=== PATIENT | male | born 1990 | race Caucasian/White ===

== ENCOUNTER 2019-05-31 16:54 | Emergency (ER) | payer OTHER ==
--- OUTSIDE RECORDS SUMMARY | 2019-05-31 16:56 | XMS REPORT ---
:1990 Author Organization [facility] t Address [address] [place] [address] Care Team Providers Name Role Phone Unavailable Unavailable Unavailable Payers Payer Name Policy Type Policy Number Effective Date Expiration D ate Problems This patient has no known problems. Allergies, Adverse Reactions, Alerts Allergy Allergy Status Severity Reaction(s) Onset Inactive Treating Marcella matos Name Type Date Date Clinician No Known DA Active U 2017-11 Allergies 00:00:0 0 Medications This patient has no known medications. Encounters Start End Encounter Admission Attending Care Care Encounter Date/Time Date/Time Type Type Clinicians Facility Department ID 2017-12-07 2017-12-07 Emergency E [facility] [id number] 08:47:00 08:47:00
[2019-05-31 18:03] LABS: Protime INR 1.03
--- NOTE | 2019-05-31 18:05 | RAD REPORT ---
EXAM DESCRIPTION: Cale Single View05/31/2019 5:47 pm CLINICAL HISTORY: Syncope COMPARISON: none FINDINGS: The lungs appear clear of acute infiltrate. The heart is normal size IMPRESSION: No acute abnormalities displayed
[2019-05-31 18:17] LABS: ALT/SGPT 30 U/L (12-78); AST/SGOT 12 U/L (15-37); Albumin 4.1 g/dL (3.4-5.0); Alkaline Phosphatase 94 U/L (45-117); BUN Blood Urea Nitrogen 16 mg/dL (7-18); Bicarbonate 27 mmol/L (21-32); Bilirubin Direct < 0.1 mg/dL (0-0.2); Bilirubin Total 0.3 mg/dL (0.2-1.0); Glucose Level 95 mg/dL (74-106); Magnesium 2.1 mg/dL (1.8-2.4); NT PRO-BNP 20 pg/mL (<125); Potassium 4.1 mmol/L (3.5-5.1); Protein, Total 7.7 g/dL (6.4-8.2); Sodium Level 140 mmol/L (136-145); Troponin (Emerg Dept Use Only) < 0.02 ng/mL (0.0-0.045)
[2019-05-31 18:18] LABS: Absolute Lymphocytes (CBC) 1.9 K/uL (0.7-4.9); Basophils % 0.5 % (0-1.3); Hematocrit 45.2 % (39.6-49.0); Lymphocytes % 27.7 % (15.3-44.8); MPV 9.5 fL (7.6-11.3); RBC Red Blood Cell Count 5.08 M/uL (4.33-5.43)
--- NOTE | 2019-05-31 18:51 | ER ---
Nurse's Notes [facility] Name: Tom Thomas Age: 28 yrs Sex: Male : 1990 Arrival Date: 05/31/2019 Time: 16:56 Bed 5 Private MD: Diagnosis: Dizziness and giddiness Presentation: 05/30 16:58 Method Of Arrival: Ambulatory sv 16:58 Chief complaint: Patient states: "I have heart problems and earlier I felt like I was sv going to pass out." Pt reports he was just eating something and "felt like someone turned my lights on and off. I've felt dizzy ever since.". Coronavirus screen: Proceed with normal triage. Patient denies a cough. Patient reports shortness of breath or difficulty breathing. Patient denies measured and/or subjective temperature greater than 100.4F prior to today's visit. Patient denies travel on a cruise ship or to a country the [facility] currently lists as an affected area. Patient denies contact with known and/or suspected case of COVID-19. Ebola Screen: No symptoms or risks identified at this time. Onset of symptoms was May 31, 2019. 16:58 Acuity: KILEY 3 sv 16:58 Initial Sepsis Screen: Does the patient meet any 2 criteria? No. Patient's initial sv sepsis screen is negative. Does the patient have a suspected source of infection? No. Patient's initial sepsis screen is negative. Risk Assessment: Do you want to hurt yourself or someone else? Patient reports no desire to harm self or others. Triage Assessment: 17:02 General: Appears in no apparent distress. comfortable, Behavior is calm, cooperative, sv appropriate for age. Pain: Denies pain. Neuro: Level of Consciousness is awake, alert, obeys commands, Oriented to person, place, time, situation, Gait is steady. Respiratory: Respiratory effort is even, unlabored. Historical: - Allergies: 17:00 No Known Allergies; sv - PMHx: 17:00 LVH; sv - PSHx: 17:00 None; sv - Immunization history:: Flu vaccine is not up to date. - Social history:: Smoking status: Patient denies any tobacco usage or history of. Screenin:03 Abuse screen: Denies threats or abuse. Denies injuries from another. Nutritional ls4 screening: No deficits noted. Tuberculosis screening: No symptoms or risk factors identified. Fall Risk None identified. Assessment: 17:00 Reassessment: SEE TRIAGE NOTE. bp 17:53 Reassessment: ALL CURRENT ORDERS IN PROCESS. PT ASYMPTOMATIC AT THIS TIME. bp Vital Signs: 16:58 BP 125 / 83; Pulse 64; Resp 16; Temp 97.8; Pulse Ox 100% on R/A; Weight 101.6 kg; sv Height 5 ft. 7 in. (170.18 cm); 17:18 BP 132 / 89 Supine; Pulse 64; Resp 14; Pulse Ox 100% on R/A; Pain 0/10; ls4 17:21 BP 130 / 92 Sitting; Pulse 63; Resp 14; Pulse Ox 99% on R/A; Pain 0/10; ls4 17:22 BP 125 / 92; Pulse 66; Resp 14; Pulse Ox 99% on R/A; Pain 0/10; ls4 17:52 BP 120 / 78; Pulse 71; Resp 16; Pulse Ox 99% ; bp 16:58 Body Mass Index 35.08 (101.60 kg, 170.18 cm) sv ED Course: 16:56 Patient arrived in ED. as 16:58 Arm band placed on. sv 17:00 Triage completed. sv 17:01 Irma Grover, ANGELIQUE is Primary Nurse. ls4 17:02 Rigo Leon PA is PHCP. cp 17:02 Ezra Diaz MD is Attending Physician. cp 17:03 Patient has correct armband on for positive identification. Bed in low position. Call ls4 light in reach. Side rails up X 1. 17:48 XRAY Chest (1 view) In Process Unspecified. EDMS 17:52 Inserted saline lock: 20 gauge in right antecubital area, using aseptic technique. bp Blood collected. 17:52 Initial lab(s) drawn, by al, sent to lab. ls4 17:52 Patient maintains SpO2 saturation greater than 95% on room air. ls4 18:54 IV discontinued, intact, bleeding controlled, No redness/swelling at site. Pressure ls4 dressing applied. 18:54 No provider procedures requiring assistance completed. ls4 Administered Medications: No medications were administered Outcome: 18:50 Discharge ordered by . cp 18:54 Discharged to home ambulatory. ls4 18:54 Condition: good 18:54 Discharge instructions given to patient, Instructed on discharge instructions, follow up and referral plans. medication usage, Demonstrated understanding of instructions, follow-up care, medications. 19:08 Patient left the ED. ls4 Signatures: Dispatcher [employer] EDMarisa Samayoa, RN RN Lucila Esparza Corey, PA PA cp Peltier, Brian, RN RN bp Stewart, Lisa, RN RN ls4 Corrections: (The following items were deleted from the chart) 17:02 16:58 101.6 kg; Height 5 ft. 7 in.; BMI: 35.0; sv sv 17:03 16:58 Pulse 64bpm; Resp 16bpm; Pulse Ox 100% RA; Temp 97.8F; 101.6 kg; Height 5 ft. 7 sv in.; BMI: 35.0; sv 19:11 18:54 No provider procedures requiring assistance completed. ls4 ls4 19:11 18:54 Patient did not have IV access during this emergency room visit. IV discontinued, ls4 intact, bleeding controlled, No redness/swelling at site. Pressure dressing applied, ls4
--- NOTE | 2019-05-31 18:51 | EDPHYS ---
Physician Documentation [facility] Name: Tom Thomas Age: 28 yrs Sex: Male : 1990 Arrival Date: 05/31/2019 Time: 16:56 Bed 5 Private MD: ED Physician Ezra Diaz HPI: 05/30 17:31 This 28 yrs old Male presents to ER via Ambulatory with complaints of Near cp Syncope. 17:31 The patient has experienced near-syncope, almost passed out, felt dizzy. Onset: The cp symptoms/episode began/occurred 40 minute(s) ago. Duration: This was a single episode. Context: occurred while the patient was eating, sitting, Just prior to the episode the patient experienced no apparent symptoms. Associated injury: The patient did not suffer any apparent associated injury. Associated signs and symptoms: Pertinent positives: chest pain, Pertinent negatives: abdominal pain, headache, palpitations, weakness. Current symptoms: dizziness. 17:31 Patient denies family history of early cardiac . cp Historical: - Allergies: 17:00 No Known Allergies; sv - PMHx: 17:00 LVH; sv - PSHx: 17:00 None; sv - Immunization history:: Flu vaccine is not up to date. - Social history:: Smoking status: Patient denies any tobacco usage or history of. ROS: 17:35 Constitutional: Negative for body aches, chills, fever, poor PO intake. cp 17:35 Eyes: Negative for injury, pain, redness, and discharge. cp 17:35 ENT: Negative for drainage from ear(s), ear pain, sore throat, difficulty swallowing, cp difficulty handling secretions. 17:35 Cardiovascular: Negative for edema, palpitations. 17:35 Respiratory: Negative for cough, shortness of breath, wheezing. 17:35 Abdomen/GI: Negative for abdominal pain, nausea, vomiting, and diarrhea, black/tarry stool, rectal bleeding. 17:35 Neuro: Positive for dizziness, near syncope, Negative for altered mental status, headache, syncope, weakness. 17:35 All other systems are negative. Exam: 17:30 ECG was reviewed by the Attending Physician. cp 17:40 Constitutional: The patient appears in no acute distress, alert, awake, cp non-diaphoretic, non-toxic, well developed, well nourished. 17:40 Head/Face: Normocephalic, atraumatic. cp 17:40 Eyes: Pupils equal round and reactive to light, extra-ocular motions intact. Lids and cp lashes normal. Conjunctiva and sclera are non-icteric and not injected. Cornea within normal limits. Periorbital areas with no swelling, redness, or edema. ENT: Nares patent. No nasal discharge, no septal abnormalities noted. Tympanic membranes are normal and external auditory canals are clear. Oropharynx with no redness, swelling, or masses, exudates, or evidence of obstruction, uvula midline. Mucous membranes moist. Chest/axilla: Normal chest wall appearance and motion. Nontender with no deformity. No lesions are appreciated. Cardiovascular: Regular rate and rhythm with a normal S1 and S2. No gallops, murmurs, or rubs. Normal PMI, no JVD. No pulse deficits. Respiratory: Lungs have equal breath sounds bilaterally, clear to auscultation and percussion. No rales, rhonchi or wheezes noted. No increased work of breathing, no retractions or nasal flaring. Abdomen/GI: Soft, non-tender, with normal bowel sounds. No distension or tympany. No guarding or rebound. No evidence of tenderness throughout. Neuro: Awake and alert, GCS 15, oriented to person, place, time, and situation. Cranial nerves II-XII grossly intact. Motor strength 5/5 in all extremities. Sensory grossly intact. Cerebellar exam normal. Normal gait. Vital Signs: 16:58 BP 125 / 83; Pulse 64; Resp 16; Temp 97.8; Pulse Ox 100% on R/A; Weight 101.6 kg; sv Height 5 ft. 7 in. (170.18 cm); 17:18 BP 132 / 89 Supine; Pulse 64; Resp 14; Pulse Ox 100% on R/A; Pain 0/10; ls4 17:21 BP 130 / 92 Sitting; Pulse 63; Resp 14; Pulse Ox 99% on R/A; Pain 0/10; ls4 17:22 BP 125 / 92; Pulse 66; Resp 14; Pulse Ox 99% on R/A; Pain 0/10; ls4 17:52 BP 120 / 78; Pulse 71; Resp 16; Pulse Ox 99% ; bp 16:58 Body Mass Index 35.08 (101.60 kg, 170.18 cm) sv MDM: 17:12 Patient medically screened. cp 17:30 Differential Diagnosis: cardiac arrhythmia, drug effect, GI bleed. cp 18:45 Data reviewed: vital signs, nurses notes, lab test result(s), EKG, radiologic studies, cp plain films. 18:45 Test interpretation: by ED physician or midlevel provider: ECG. cp 18:50 Counseling: I had a detailed discussion with the patient and/or guardian regarding: the cp historical points, exam findings, and any diagnostic results supporting the discharge/admit diagnosis, lab results, radiology results, the need for outpatient follow up, a family practitioner, to return to the emergency department if symptoms worsen or persist or if there are any questions or concerns that arise at home. 18:50 Response to treatment: the patient's symptoms have markedly improved after treatment, cp and as a result, I will discharge patient. 05/30 17:29 Order name: Basic Metabolic Panel; Complete Time: 18:28 cp 05/30 18:28 Interpretation: Normal except: CL 108. cp 05/30 17:29 Order name: CBC with Diff; Complete Time: 18:28 cp 05/30 18:28 Interpretation: Normal except: RDW 11.9. cp 05/30 17:29 Order name: LFT's; Complete Time: 18:28 cp 05/30 18:28 Interpretation: Normal except: AST 12; GLOB 3.6. cp 05/30 17:29 Order name: Magnesium; Complete Time: 18:28 cp 05/30 17:29 Order name: NT PRO-BNP; Complete Time: 18:28 cp 05/30 17:29 Order name: PT-INR; Complete Time: 18:28 cp 05/30 17:02 Order name: EKG - Nurse/Tech; Complete Time: 17:29 ls4 05/30 17:02 Order name: Orthostatics; Complete Time: 17:29 cp 05/30 17:29 Order name: Troponin (emerg Dept Use Only); Complete Time: 18:28 cp 05/30 18:28 Interpretation: Within normal limits: TROPED < 0.02. cp 05/30 17:29 Order name: XRAY Chest (1 view); Complete Time: 18:09 cp 05/30 18:09 Interpretation: Report review. cp 05/30 17:29 Order name: EKG; Complete Time: 17:29 cp 05/30 17:29 Order name: Cardiac monitoring; Complete Time: 17:52 cp 05/30 17:29 Order name: IV Saline Lock; Complete Time: 17:52 cp 05/30 17:29 Order name: Labs collected and sent; Complete Time: 17:52 cp 05/30 17:29 Order name: O2 Per Protocol; Complete Time: 17:29 cp 05/30 17:29 Order name: O2 Sat Monitoring; Complete Time: 17:30 cp EC:30 Rate is 62 beats/min. Rhythm is regular. NM interval is normal. QRS interval is cp prolonged at 118 msec. QT interval is normal. T waves are Inverted in lead V2. Interpreted by me. Reviewed by me. Administered Medications: No medications were administered Disposition: 05/31 07:36 Co-signature as Attending Physician, Ezra Diaz MD I agree with the assessment and kdr plan of care. Disposition: 05/31/19 18:50 Discharged to Home. Impression: Dizziness and giddiness. - Condition is Stable. - Discharge Instructions: Dizziness, Near-Syncope. - Prescriptions for Meclizine 25 mg Oral Tablet - take 1 tablet by ORAL route every 8 hours As needed; 30 tablet. - Medication Reconciliation Form, Thank You Letter, Antibiotic Education, Prescription Opioid Use form. - Follow up: Private Physician; When: 2 - 3 days; Reason: Recheck today's complaints. - Problem is new. - Symptoms have improved. Signatures: Dispatcher [employer] Marisa Manley RN RN sv Rittger, Kevin, MD MD kdr Page, Corey, PA PA cp Irma Grover RN RN ls4 Corrections: (The following items were deleted from the chart) 05/30 19:08 18:50 05/31/2019 18:50 Discharged to Home. Impression: Dizziness and giddiness. ls4 Condition is Stable. Forms are Medication Reconciliation Form, Thank You Letter, Antibiotic Education, Prescription Opioid Use. Follow up: Private Physician; When: 2 - 3 days; Reason: Recheck today's complaints. Problem is new. Symptoms have improved. cp
[2019-05-31 19:16] VITALS: TEMP 97.8
[2019-05-31 19:19] VITALS: O2SAT 99
[2019-05-31 19:22] VITALS: BP 120/78
--- NOTE | 2019-06-01 07:59 | EKG ---
Test Date: 2019-05-31 Test Time: 17:22:17 Mat Cutter: MEASUREMENT RESULTS: Intervals: Rate: 62 RI: 140 QRSD: 118 QT: 408 QTc: 414 [place]: P: 33 RI: 140 QRS: -2 T: 30 INTERPRETIVE STATEMENTS: Normal sinus rhythm Incomplete right bundle branch block Borderline ECG No previous ECG available for comparison Electronically Signed On 06-01-19 07:58:31 CDT by Ronald Sam
== END 2019-05-31 19:08 | disposition home or self-care (01) ==
LOC: ER 16:54
DX: R42 Dizziness and giddiness (principal); R55 Syncope and collapse
CPT/HCPCS: 36415; 71045; 80048; 80076; 83735; 83880; 84484; 85025; 85610; 93005; 99284

== ENCOUNTER 2021-01-10 14:08 | Emergency (ER) | payer OTHER, SELFPAY ==
--- OUTSIDE RECORDS SUMMARY | 2021-01-10 14:11 | XMS REPORT | Continuity of Care Document ---
:1990 Author Organization [facility] t Address [address] [place] [address] Care Team Providers Name Role Phone MCGREGOR Attending Clinician Unavailable Payers Payer Name Policy Type Policy Number Effective Date Expiration Date S ource Problems This patient has no known problems. Allergies, Adverse Reactions, Alerts Allergy Allergy Status Severity Reaction(s) Onset Inactive Treating Comm ents Source Name Type Date Date Clinician No Known DA Active U 2017-02 [facility] 0-10 [facility] 00:00: [address] Medications This patient has no known medications. Procedures This patient has no known procedures. Encounters Start End Encounter Admission Attending Care Care Encounter Source Date/Time Date/Time Type Type Clinicians Facility Department ID 2019-11-17 2019-11-17 Outpatient [place], [facility] [id number] 00:00:00 00:00:00 [facility] [address] 2017-12-07 2017-12-07 Emergency E [facility] [id number] 08:47:00 08:47:00 taryn centeno [facility] Results This patient has no known results.
[2021-01-10] MEDS ORDERED: dexAMETHasone 10 MG/ML VIAL ONE (15:55)
--- NOTE | 2021-01-10 16:56 | ER ---
Nurse's Notes [facility] Name: Tom Thomas Age: 30 yrs Sex: Male : 1990 Arrival Date: 01/10/2021 Time: 14:10 Bed Treatment Private MD: Diagnosis: Acute pharyngitis, unspecified Presentation: 01/10 14:19 Chief complaint: Patient states: Sore throaty for 2 days. No fever. Coronavirus screen: ll1 Vaccine status: Patient reports being unvaccinated. Client denies travel out of the [place] in the last 14 days. headache, runny nose, sore throat, Client presents with at least one sign or symptom that may indicate coronavirus-19. Standard/surgical mask placed on the client. Ebola Screen: Patient denies travel to an Ebola-affected area in the 21 days before illness onset. Initial Sepsis Screen: Does the patient meet any 2 criteria? No. Patient's initial sepsis screen is negative. Does the patient have a suspected source of infection? Yes: Other: sore throat. Risk Assessment: Do you want to hurt yourself or someone else? Patient reports no desire to harm self or others. Onset of symptoms was January 09, 2021. 14:19 Method Of Arrival: Ambulatory 1 14:19 Acuity: KILEY 4 ll1 Historical: - Allergies: 14:21 Soy; ll1 - PMHx: 14:21 LVH; R BBB; ll1 - PSHx: 14:21 None; ll1 - Immunization history:: Client reports having NOT received the Covid vaccine. Flu vaccine status is unknown. - Social history:: Smoking status: Patient denies any tobacco usage or history of. Screenin:21 Abuse screen: Denies threats or abuse. Nutritional screening: No deficits noted. jg9 Tuberculosis screening: No symptoms or risk factors identified. Fall Risk None identified. Assessment: 15:20 General: Appears in no apparent distress. Behavior is calm, cooperative. Pain: jg9 Complains of pain in uvula, left aspect of posterior pharynx and right aspect of posterior pharynx Pain does not radiate. Pain currently is 5 out of 10 on a pain scale. Quality of pain is described as sharp. Respiratory: No deficits noted. Airway is patent Respiratory effort is even, unlabored, relaxed. EENT: Throat is reddened. 16:40 Reassessment: Patient states feeling better. Respiratory: No deficits noted. Breath jg9 sounds are clear. Vital Signs: 14:19 Pulse 59; Resp 17; Temp 98.1; Pulse Ox 100% ; Weight 102.06 kg; Height 5 ft. 7 in. ll1 (170.18 cm); Pain 5/10; 14:21 BP 134 / 92; ll1 15:10 BP 132 / 90; Pulse 76; Resp 18; Pulse Ox 100% ; Pain 2/10; jg9 16:40 BP 128 / 83; Pulse 77; Resp 18; Temp 97.6(O); Pulse Ox 99% ; Pain 3/10; jg9 14:19 Body Mass Index 35.24 (102.06 kg, 170.18 cm) 1 ED Course: 14:10 Patient arrived in ED. mr 14:19 Arm band placed on. 1 14:21 Triage completed. 1 14:58 Patient placed in an exam room, on a stretcher. 15:01 Len Nolen PA is PHCP. [facility] 15:01 Abimael Irizarry MD is Attending Physician. [facility] 15:10 Awaiting disposition. Patient taken to an exam room. jg9 15:10 Call light in reach. jg9 17:05 No provider procedures requiring assistance completed. Patient did not have IV access jg9 during this emergency room visit. Administered Medications: 15:58 Drug: Decadron (dexamethasone) 10 mg Route: IM; Site: left deltoid; jg9 Outcome: 16:56 Discharge ordered by . [facility] 17:05 Discharged to home ambulatory. jg9 17:05 Condition: good 17:05 Discharge instructions given to patient. 17:05 Instructed on discharge instructions, follow up and referral plans. Demonstrated understanding of instructions, follow-up care, medications, Prescriptions given X 1. 17:06 Patient left the ED. [facility] Signatures: Len Nolen PA PA jmm Rivera, Mary Marely Garza, RN ANGELIQUE Miranda Lopez RN RN [facility] Linda Millan jg9
--- NOTE | 2021-01-10 16:56 | EDPHYS ---
Physician Documentation [facility] Name: Tom Thomas Age: 30 yrs Sex: Male : 1990 Arrival Date: 01/10/2021 Time: 14:10 Bed Treatment Private MD: ED Physician Abimael Irizarry HPI: 01/10 14:23 This 30 yrs old Male presents to ER via Ambulatory with complaints of Sore Throat. jmm 14:23 The patient presents with sore throat. Onset: The symptoms/episode began/occurred jmm gradually, 1 day(s) ago. Modifying factors: The symptoms are alleviated by nothing, the symptoms are aggravated by nothing. Associated signs and symptoms: Pertinent negatives fever. This is a 30 year old male with a history of LVH, RBBB that presents to the ED with complaints of sore throat beginning yesterday. Denies fever vomiting, diarrhea. Denies shortness of breath. Historical: - Allergies: 14:21 Soy; ll1 - PMHx: 14:21 LVH; R BBB; ll1 - PSHx: 14:21 None; ll1 - Immunization history:: Client reports having NOT received the Covid vaccine. Flu vaccine status is unknown. - Social history:: Smoking status: Patient denies any tobacco usage or history of. ROS: 14:23 Constitutional: Negative for fever, chills, and weight loss. jmm 14:23 ENT: Positive for sore throat. 14:23 All other systems are negative. Exam: 14:23 Constitutional: This is a well developed, well nourished patient who is awake, alert, jmm and in no acute distress. Head/Face: atraumatic. Eyes: EOMI, no conjunctival erythema appreciated 14:23 Neck: Trachea midline, Supple Chest/axilla: Normal chest wall appearance and motion. Cardiovascular: Regular rate and rhythm. No edema appreciated Respiratory: Normal respirations, no respiratory distress appreciated Abdomen/GI: Non distended, soft Back: Normal ROM Skin: General appearance color normal MS/ Extremity: Moves all extremities, no obvious deformities appreciated, no edema noted to the lower extremities Neuro: Awake and alert, normal gait Psych: Behavior is normal, Mood is normal, Patient is cooperative and pleasant 14:23 ENT: Posterior pharynx: Tonsils: with exudate, erythema, that is moderate. Vital Signs: 14:19 Pulse 59; Resp 17; Temp 98.1; Pulse Ox 100% ; Weight 102.06 kg; Height 5 ft. 7 in. ll1 (170.18 cm); Pain 5/10; 14:21 BP 134 / 92; ll1 15:10 BP 132 / 90; Pulse 76; Resp 18; Pulse Ox 100% ; Pain 2/10; jg9 16:40 BP 128 / 83; Pulse 77; Resp 18; Temp 97.6(O); Pulse Ox 99% ; Pain 3/10; jg9 14:19 Body Mass Index 35.24 (102.06 kg, 170.18 cm) ll1 MDM: 15:24 Patient medically screened. [facility] 16:55 Data reviewed: vital signs, nurses notes. Counseling: I had a detailed discussion with aayush the patient and/or guardian regarding: the historical points, exam findings, and any diagnostic results supporting the discharge/admit diagnosis, lab results, the need for outpatient follow up, to return to the emergency department if symptoms worsen or persist or if there are any questions or concerns that arise at home. 01/10 14:22 Order name: Strep; Complete Time: 15:23 ll1 01/10 14:45 Order name: Throat Culture EDMS Administered Medications: 15:58 Drug: Decadron (dexamethasone) 10 mg Route: IM; Site: left deltoid; jg9 Disposition: 01/11 07:05 Co-signature as Attending Physician, Abimael Irizarry MD I agree with the assessment and rn plan of care. Disposition Summary: 01/10/21 16:56 Discharge Ordered Location: Home [facility] Condition: Stable [facility] Diagnosis - Acute pharyngitis, unspecified [facility] Followup: [facility] - With: Private Physician - When: 2 - 3 days - Reason: Recheck today's complaints, Continuance of care, Re-evaluation by your physician Discharge Instructions: - Discharge Summary Sheet [facility] - Pharyngitis [facility] Forms: - Medication Reconciliation Form [facility] - Thank You Letter [facility] - Antibiotic Education [facility] - Prescription Opioid Use [facility] Prescriptions: - Augmentin 875-125 mg Oral Tablet - take 1 tablet by ORAL route every 12 hours for 10 days; 20 tablet; Refills: 0, aayush Product Selection Permitted Signatures: Dispatcher [employer] EDMS MickailLen PA PA jmm Nieto, Roman, MD MD rn John, ANGELIQUE Jean RN ll1 Linda Millan jg9
[2021-01-10 17:16] VITALS: BP 128/83; TEMP 97.6; O2SAT 99
== END 2021-01-10 17:06 | disposition home or self-care (01) ==
LOC: ER 14:08
DX: J02.9 Acute pharyngitis, unspecified (principal)
CPT/HCPCS: 87070; 87081; 96372; 99283; J1100

== ENCOUNTER 2021-02-16 02:57 | Emergency (ER) | payer SELFPAY ==
--- OUTSIDE RECORDS SUMMARY | 2021-02-16 02:59 | XMS REPORT | Continuity of Care Document ---
:1990 Author Organization [facility] t Address [address] [place] [address] Care Team Providers Name Role Phone MCGREGOR Attending Clinician Unavailable Payers Payer Name Policy Type Policy Number Effective Date Expiration Date S ource Problems This patient has no known problems. Allergies, Adverse Reactions, Alerts Allergy Allergy Status Severity Reaction(s) Onset Inactive Treating Comm ents Source Name Type Date Date Clinician No Known DA Active U 2017-02 [facility] 0-10 [facility] 00:00: [address] Medications This patient has no known medications. Procedures This patient has no known procedures. Encounters Start End Encounter Admission Attending Care Care Encounter Source Date/Time Date/Time Type Type Clinicians Facility Department ID 2019-11-17 2019-11-17 Outpatient [place], [facility] [id number] 00:00:00 00:00:00 [facility] [address] 2017-12-07 2017-12-07 Emergency E [facility] [id number] 08:47:00 08:47:00 taryn centeno [facility] l Results This patient has no known results.
[2021-02-16 04:14] LABS: SARS-COV-2 RT PCR POSITIVE (NEGATIVE)
--- NOTE | 2021-02-16 05:06 | ER ---
Nurse's Notes [facility] Name: Tom Thomas Age: 30 yrs Sex: Male : 1990 Arrival Date: 02/16/2021 Time: 03:00 Bed 12 Private MD: Diagnosis: SARS-associated coronavirus as the cause of diseases classified elsewhere;Viral infection, unspecified;Acute upper respiratory infection, unspecified Presentation: 02/16 03:10 Chief complaint: Patient states: covid like symptoms onset Sunday 02/12. gradually bb increasing in severity. reports cough, runny nose, body aches, fever, chills. denies SOB. stated he took tylenol around 2300 for a fever of "100 point something". Coronavirus screen: Vaccine status: Patient reports being unvaccinated. Client denies travel out of the [place] in the last 14 days. chills, congestion, cough unrelated to allergies, fever, headache, muscle pain, runny nose, sore throat, Client presents with at least one sign or symptom that may indicate coronavirus-19. Standard/surgical mask placed on the client. Ebola Screen: No symptoms or risks identified at this time. Initial Sepsis Screen: Does the patient meet any 2 criteria? No. Patient's initial sepsis screen is negative. Does the patient have a suspected source of infection? No. Patient's initial sepsis screen is negative. Risk Assessment: Do you want to hurt yourself or someone else? Patient reports no desire to harm self or others. Onset of symptoms was February 12, 2021 at 08:00. 03:10 Method Of Arrival: Ambulatory bb 03:10 Acuity: KILEY 4 bb Triage Assessment: 03:17 Headache History: Denies prior headaches. General: Appears in no apparent distress. bb uncomfortable, Behavior is calm, cooperative. Pain: Complains of pain in back and chest Pain currently is 5 out of 10 on a pain scale. Pain began gradually, Also complains of. EENT:. Neuro: Level of Consciousness is awake, alert, obeys commands, Oriented to person, place, time, situation. Cardiovascular: Capillary refill < 3 seconds Patient's skin is warm and dry. Respiratory: Airway is patent Trachea midline Respiratory effort is even, unlabored, Respiratory pattern is regular, symmetrical. GI: No signs and/or symptoms were reported involving the gastrointestinal system. : No signs and/or symptoms were reported regarding the genitourinary system. Derm: No signs and/or symptoms reported regarding the dermatologic system. Musculoskeletal: No deficits noted. 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 - Social history:: Smoking status: Patient denies any tobacco usage or history of. Screenin:01 Abuse screen: Denies threats or abuse. Nutritional screening: No deficits noted. bb Tuberculosis screening: No symptoms or risk factors identified. Fall Risk None identified. Assessment: 04:16 General: Appears in no apparent distress. comfortable, Behavior is calm, cooperative. bb Pain: Complains of pain in back and chest Pain currently is 5 out of 10 on a pain scale. Neuro: Level of Consciousness is awake, alert, obeys commands, Oriented to person, place, time, Air Deodorizer Servicer are equal bilaterally Moves all extremities. Gait is steady, Speech is normal, Facial symmetry appears normal. Cardiovascular: Capillary refill < 3 seconds JVD is absent Patient's skin is warm and dry. Respiratory: Airway is patent Trachea midline Respiratory effort is even, unlabored, Respiratory pattern is regular, symmetrical, Breath sounds are clear bilaterally. GI: No signs and/or symptoms were reported involving the gastrointestinal system. : No signs and/or symptoms were reported regarding the genitourinary system. EENT: No signs and/or symptoms were reported regarding the EENT system. Derm: Skin is intact, is healthy with good turgor. Musculoskeletal: Circulation, motion, and sensation intact. Range of motion: intact in all extremities. Vital Signs: 03:10 BP 124 / 92; Pulse 70; Resp 18 S; Temp 98.6(O); Pulse Ox 99% on R/A; Weight 99.79 kg bb (R); Height 5 ft. 7 in. (170.18 cm) (R); Pain 5/10; 04:18 BP 122 / 86; Pulse 68; Resp 18; Pulse Ox 99% on R/A; Pain 5/10; bb 03:10 Body Mass Index 34.46 (99.79 kg, 170.18 cm) ED Course: 03:00 Patient arrived in ED. bp1 03:15 Triage completed. bb 03:17 Arm band placed on. bb 03:20 Ezra Diaz MD is Attending Physician. kdr 03:29 Strep Sent. bb 03:29 COVID-19/FLU A+B (Document "Date of Onset" if Symptomatic) Sent. bb 03:29 COVID-19/FLU A+B (Document "Date of Onset" if Symptomatic) Sent. bb 04:16 Janett Johnson, RN is Primary Nurse. bb 04:19 Patient has correct armband on for positive identification. Bed in low position. Call bb light in reach. Side rails up X 1. 05:01 Door closed. Warm blanket given. bb 05:01 No provider procedures requiring assistance completed. Patient did not have IV access bb during this emergency room visit. Administered Medications: No medications were administered Outcome: 05:06 Discharge ordered by . kdr 05:08 Discharged to home ambulatory. bb 05:08 Condition: stable 05:08 Discharge instructions given to patient. 05:23 Patient left the ED. bb Signatures: Ezra Diaz MD MD kdr Janett Johnson, RN RN bb Ana Brito bp1
--- NOTE | 2021-02-16 05:06 | EDPHYS ---
Physician Documentation [facility] Name: Tom Thomas Age: 30 yrs Sex: Male : 1990 Arrival Date: 02/16/2021 Time: 03:00 Bed 12 Private MD: ED Physician Ezra Diaz HPI: 02/16 05:31 This 30 yrs old Male presents to ER via Ambulatory with complaints of Fever, Headache, kdr Sore Throat. 05:31 The patient reports fever, not measured (subjective). Onset: The symptoms/episode kdr began/occurred gradually, February 12. Modifying factors: there are no obvious modifying factors. Associated signs and symptoms: Pertinent positives: backache, chills, cough, decreased appetite, earache, headache, myalgias, runny nose, sinus congestion. Severity of symptoms: At their worst the symptoms were mild moderate just prior to arrival, in the emergency department the symptoms are unchanged. The patient has not experienced similar symptoms in the past. The patient has not recently seen a physician. 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 - Social history:: Smoking status: Patient denies any tobacco usage or history of. ROS: 05:31 Constitutional: Negative for fever, chills, and weight loss, Eyes: Negative for injury, kdr pain, redness, and discharge, Neck: Negative for injury, pain, and swelling, Cardiovascular: Negative for chest pain, palpitations, and edema, Respiratory: Negative for shortness of breath, cough, wheezing, and pleuritic chest pain, Abdomen/GI: Negative for abdominal pain, nausea, vomiting, diarrhea, and constipation, Back: Negative for injury and pain, : Negative for injury, bleeding, discharge, and swelling, MS/Extremity: Negative for injury and deformity, Skin: Negative for injury, rash, and discoloration, Neuro: Negative for headache, weakness, numbness, tingling, and seizure activity. Psych: Negative for depression, anxiety, suicide ideation, homicidal ideation, and hallucinations, Allergy/Immunology: Negative for hives, rash, and allergies, Endocrine: Negative for neck swelling, polydipsia, polyuria, polyphagia, and marked weight changes, Hematologic/Lymphatic: Negative for swollen nodes, abnormal bleeding, and unusual bruising. Exam: 05:31 Constitutional: This is a well developed, well nourished patient who is awake, alert, kdr and in no acute distress. Head/Face: No exam was done beyond general observation as the patient was just here for COVID test Vital Signs: 03:10 BP 124 / 92; Pulse 70; Resp 18 S; Temp 98.6(O); Pulse Ox 99% on R/A; Weight 99.79 kg bb (R); Height 5 ft. 7 in. (170.18 cm) (R); Pain 5/10; 04:18 BP 122 / 86; Pulse 68; Resp 18; Pulse Ox 99% on R/A; Pain 5/10; bb 03:10 Body Mass Index 34.46 (99.79 kg, 170.18 cm) bb MDM: 05:06 Patient medically screened. kdr 05:31 Data reviewed: vital signs, nurses notes, lab test result(s). Counseling: I had a kdr detailed discussion with the patient and/or guardian regarding: the historical points, exam findings, and any diagnostic results supporting the discharge/admit diagnosis, lab results, the need for outpatient follow up. 02/16 03:21 Order name: Strep; Complete Time: 04:56 bb 02/16 03:22 Order name: COVID-19/FLU A+B (Document "Date of Onset" if Symptomatic); Complete Time: kdr 04:56 02/16 04:05 Order name: Throat Culture EDMS Administered Medications: No medications were administered Disposition Summary: 02/16/21 05:06 Discharge Ordered Location: Home kdr Problem: new kdr Symptoms: have improved kdr Condition: Stable kdr Diagnosis - SARS-associated coronavirus as the cause of diseases classified elsewhere kdr - Viral infection, unspecified kdr - Acute upper respiratory infection, unspecified kdr Followup: kdr - With: Private Physician - When: 2 - 3 days - Reason: If symptoms return, Further diagnostic work-up, Recheck today's complaints, Continuance of care, Re-evaluation by your physician Discharge Instructions: - Discharge Summary Sheet kdr - Upper Respiratory Infection, Adult kdr - Viral Respiratory Infection, [id number] kdr - COVID-19 kdr - Things to Know about the COVID-19 Pandemic - [facility] kdr - 10 Things You Can Do to Manage Your COVID-19 Symptoms at Home - [facility] kdr - COVID-19: Quarantine vs. Isolation - [facility] kdr - Prevent the Spread of COVID-19 if You Are Sick - [facility] kdr Forms: - Medication Reconciliation Form kdr - Thank You Letter kdr Signatures: Dispatcher [employer] Ezra Kellogg MD MD kdr Janett Johnson RN RN bb
[2021-02-16 05:37] VITALS: TEMP 98.6; O2SAT 99
[2021-02-16 05:39] VITALS: BP 122/86
== END 2021-02-16 05:23 | disposition home or self-care (01) ==
LOC: ER 02:57
DX: U07.1 COVID-19 (principal); B34.9 Viral infection, unspecified; J06.9 Acute upper respiratory infection, unspecified; Z91.018 Allergy to other foods
CPT/HCPCS: 0240U; 87070; 87081; 99283

== ENCOUNTER → 2023-02-15 | Emergency (ER) | payer OTHER, SELFPAY ==
[~2023-02-15] MED LIST: MECLIZINE HCL 12.5 MG TAB ONE
[2023-02-15 15:44] LABS: Absolute Lymphocytes (CBC) 0.7 K/uL (0.7-4.9); Hematocrit 47.7 % (39.6-49.0); Lymphocytes % 9.9 % (15.3-44.8); MCV 87.7 fL (80-100); MPV 9.2 fL (7.6-11.3); Platelets 231 thou/uL (152-406); RBC Red Blood Cell Count 5.43 M/uL (4.33-5.43)
[2023-02-15 15:57] LABS: Protime INR 1.13
[2023-02-15 16:22] LABS: Blood Morphology Comment NOT SEEN (NOT SEEN); Platelet Estimate ADEQ; White Blood Cell Scan OK (OK)
--- NOTE | 2023-02-15 16:31 | RAD REPORT ---
[facility]12 [facility] CLINICAL HISTORY: CHEST PAIN COMPARISON: Chest Single View dated 05/31/2019 TECHNIQUE: Portable AP view of the chest. FINDINGS: The lungs are clear. No pneumothorax or effusion. The cardiomediastinal contours are unre markable. IMPRESSION: No acute cardiopulmonary process.
[2023-02-15 17:20] LABS: Bilirubin Direct 0.1 mg/dL (0-0.2); Bilirubin Total 0.4 mg/dL (0.2-1.0); Potassium 3.7 mEq/L (3.5-5.1)
[2023-02-15 17:21] LABS: Albumin 4.3 g/dL (3.4-5.0); Bilirubin Indirect, Calculated 0.3 mg/dL (0.2-0.8); Magnesium 2.2 mg/dL (1.6-2.4); Protein, Total 8.1 g/dL (6.4-8.2); Troponin High Sensitivity 10.7 pg/mL (<58.9)
--- NOTE | 2023-02-15 17:23 | EDPHYS ---
Physician Documentation [facility] Name: Tom Thomas Age: 32 yrs Sex: Male : 1990 Arrival Date: 02/15/2023 Time: 15:06 Bed DIS2 Private MD: ED Physician Manisha Garnica HPI: 02/15 15:24 This 32 yrs old Male presents to ER via Unassigned with complaints of chest pain, sb4 dizziness. 15:24 The patient or guardian reports chest pain that is located primarily in the anterior sb4 chest wall. The pain does not radiate. Associated signs and symptoms: Pertinent positives: dizziness, palpitations. patient reports chest pain and dizziness x 2 days. states he has history of LVH and RBBB. was arrested earlier today and requested to come in for evaluation. states he was diagnosed with hypertension and prediabetes but is not on any daily medications. Historical: - Allergies: 15:41 Soy; iw - PMHx: 15:41 LVH; R BBB; iw ROS: 15:24 Constitutional: Negative for fever, chills, and weight loss, sb4 15:24 Cardiovascular: Positive for chest pain, palpitations, 15:24 Neuro: Positive for dizziness, 15:24 All other systems are negative, Exam: 15:24 Constitutional: This is a well developed, well nourished patient who is awake, alert, sb4 and in no acute distress. Head/Face: Normocephalic, atraumatic. Eyes: Extra-ocular motions intact. Periorbital areas with no swelling, redness, or edema. ENT: Mucous membranes moist. Cardiovascular: Regular rate and rhythm with a normal S1 and S2. Respiratory: Lungs have equal breath sounds bilaterally, clear to auscultation and percussion. No rales, rhonchi or wheezes noted. No increased work of breathing, no retractions or nasal flaring. Abdomen/GI: Soft, non-tender, no distension. Skin: Warm, dry with normal turgor. Normal color with no rashes, no lesions, and no evidence of cellulitis. MS/ Extremity: Pulses equal, no cyanosis. Neurovascular intact. Full, normal range of motion. Neuro: Awake and alert, GCS 15, oriented to person, place, time, and situation. Motor strength 5/5 in all extremities. Sensory grossly intact. Vital Signs: 15:40 BP 119 / 86; Pulse 97; Resp 16; Temp 98.1; Pulse Ox 97% on R/A; iw MDM: 15:17 Patient medically screened. sb4 15:24 Differential diagnosis: abnormal EKG, anxiety, chest wall pain, stable angina, vertigo. sb4 17:21 Data reviewed: vital signs, nurses notes, lab test result(s), EKG, radiologic studies, sb4 and as a result, I will discharge patient. Consideration of Admission/Observation Escalation of care including admission/observation considered. Scoring Tools HEART Score: History: ECG: Age: Risk Factors: 1 or 2 risk factors (1), Troponin: Total Score = 1. 02/15 15:23 Order name: Basic Metabolic Panel; Complete Time: 17:21 sb4 02/15 15:23 Order name: CBC with Diff; Complete Time: 16:25 sb4 02/15 15:23 Order name: D-Dimer; Complete Time: 16:07 sb4 02/15 15:23 Order name: LFT's; Complete Time: 17:21 sb4 02/15 15:23 Order name: Magnesium; Complete Time: 17:21 sb4 02/15 15:23 Order name: NT PRO-BNP; Complete Time: 17:21 sb4 02/15 15:23 Order name: PT-INR; Complete Time: 16:07 sb4 02/15 15:23 Order name: Troponin HS; Complete Time: 17:21 sb4 02/15 15:55 Order name: CBC Smear Scan; Complete Time: 16:25 EDMS 02/15 15:23 Order name: XRAY Chest (1 view); Complete Time: 16:34 sb4 02/15 15:23 Order name: EKG; Complete Time: 15:23 sb4 02/15 15:23 Order name: Cardiac monitoring sb4 02/15 15:23 Order name: EKG - Nurse/Tech sb4 02/15 15:23 Order name: IV Saline Lock; Complete Time: 15:34 sb4 02/15 15:23 Order name: Labs collected and sent; Complete Time: 15:34 sb4 02/15 15:23 Order name: O2 Per Protocol sb4 02/15 15:23 Order name: O2 Sat Monitoring sb4 02/15 15:48 Order name: Labs - recollect needed: recollect green top; Complete Time: 17:32 bd Administered Medications: 17:44 Drug: Meclizine PO 25 mg PO once Route: PO; iw Disposition Summary: 02/15/23 17:22 Discharge Ordered Notes: Location: Home sb4 Problem: an ongoing problem sb4 Symptoms: are unchanged sb4 Condition: Stable sb4 Diagnosis - Dizziness and giddiness sb4 Followup: sb4 - With: Emergency Department - When: As needed - Reason: Trouble breathing, Worsening of condition Discharge Instructions: - Discharge Summary Sheet sb4 - Nonspecific Chest Pain, Adult sb4 - Dizziness sb4 Forms: - Medication Reconciliation Form sb4 - Thank You Letter sb4 - Antibiotic Education sb4 - Prescription Opioid Use sb4 - Patient Portal Instructions sb4 - Leadership Thank You Letter sb4 Addendum: 02/16/2023 19:46 Co-signature as Attending Physician, Manisha Garnica MD I agree with the assessment and g b1 plan of care. I reviewed the patient's care provided by the Advanced Practice Provider and agree with the diagnosis and treatment plan. Signatures: Dispatcher [employer] Enedelia Rodriguez Irene, RN RN Jania Hernandez, PABrannonC PAAshley sb4 Manisha Garnica MD MD gb1
--- NOTE | 2023-02-15 17:23 | ER ---
Nurse's Notes [facility] Name: Tom Thomas Age: 32 yrs Sex: Male : 1990 Arrival Date: 02/15/2023 Time: 15:06 Bed DIS2 Private MD: Diagnosis: Dizziness and giddiness Presentation: 02/15 15:40 Chief complaint: Patient states: feels SOB, chest pounding for a few days, got worse. iw Coronavirus screen: At this time, the client does not indicate any symptoms associated with coronavirus-19. Ebola Screen: Patient negative for fever greater than or equal to 101.5 degrees Fahrenheit, and additional compatible Ebola Virus Disease symptoms Patient denies exposure to infectious person. Patient denies travel to an Ebola-affected area in the 21 days before illness onset. No symptoms or risks identified at this time. 15:40 Method Of Arrival: Law Enforcement: [place] [employer] iw 15:40 Acuity: KILEY 3 iw Historical: - Allergies: 15:41 Soy; iw - PMHx: 15:41 LVH; R BBB; iw Screenin:[address] [facility] ED Fall Risk Assessment (Adult) Score/Fall Risk Level 0 - 2 = Low Risk. Abuse iw screen: Denies threats or abuse. Denies injuries from another. Nutritional screening: No deficits noted. Tuberculosis screening: No symptoms or risk factors identified. Assessment: 17:44 Reassessment: Patient appears in no apparent distress at this time. Patient and/or iw family updated on plan of care and expected duration. Pain level reassessed. Patient is alert, oriented x 3, equal unlabored respirations, skin warm/dry/pink. Vital Signs: 15:40 BP 119 / 86; Pulse 97; Resp 16; Temp 98.1; Pulse Ox 97% on R/A; iw ED Course: 15:12 Patient arrived in ED. iw 15:16 Jania Zhao PA-C is PHCP. sb4 15:16 Manisha Garnica MD is Attending Physician. sb4 15:34 CBC with Diff Sent. em1 15:34 D-Dimer Sent. em1 15:34 LFT's Sent. em1 15:34 Magnesium Sent. em1 15:34 NT PRO-BNP Sent. em1 15:34 PT-INR Sent. em1 15:34 Troponin HS Sent. em1 15:34 Initial lab(s) drawn, by me, sent to lab. Inserted saline lock: 22 gauge in right em1 forearm, using aseptic technique. Blood collected. 15:41 Triage completed. iw 15:41 Arm band placed on. iw 16:13 XRAY Chest (1 view) In Process Unspecified. EDMS 16:42 Marely Garza, RN is Primary Nurse. iw Administered Medications: 17:44 Drug: Meclizine PO 25 mg PO once Route: PO; iw Outcome: 17:22 Discharge ordered by . abner 17:45 Patient left the ED. iw Signatures: Dispatcher [employer] EDMS Marely Garza, RN RN Trace Rausch em1 Jania Zhao, MP PAAshley levine
[2023-02-15 20:08] VITALS: BP 119/86; TEMP 98.1; O2SAT 97
== END ==
LOC: ER 15:06
DX: R42 Dizziness and giddiness (principal); R07.89 Other chest pain; R00.2 Palpitations; I10 Essential (primary) hypertension; Z91.018 Allergy to other foods
CPT/HCPCS: 85025; 80048; 36415; 83735; 85610; 85379; 80076; 84484; 83880; 71045; 99283; J8597

== ENCOUNTER 2023-11-13 15:55 | Emergency (ER) | payer OTHER ==
[2023-11-13 16:52] LABS: Specific Gravity 1.018 (1.005-1.030); Sqamous Epithelial None Seen /HPF (None Seen); Urine Bacteria <20 /HPF (<20); Urine Bilirubin NEGATIVE (Negative); Urine Blood Negative (Negative); Urine Clarity Clear (Clear); Urine Color Light-Yellow (Yellow); Urine Culture Reflex Order NOT NEEDED; Urine Glucose NEGATIVE (Negative); Urine Ketones NEGATIVE (Negative); Urine Microscopic Reflex YN ORDER UMIC; Urine Mucus Slight /HPF (None Seen); Urine Nitrite NEGATIVE (Negative); Urine Protein NEGATIVE (Negative); Urine RBC <5 /HPF (None Seen); Urine Urobilinogen Normal (Normal); Urine WBC None Seen /HPF (<5)
[2023-11-13 17:18] LABS: Absolute Eosinophils 0.1 K/uL (0-0.5); Absolute Lymphocytes (CBC) 1.8 K/uL (0.7-4.9); Absolute Monocytes 0.4 K/uL (0.1-1.3); Absolute Neutrophil 3.9 K/uL (1.8-8.0); Basophils % 0.5 % (0-1.3); Eosinophils % 1.5 % (0-4.4); Hematocrit 44.9 % (39.6-49.0); Hemoglobin 14.9 g/dL (13.6-17.9); Lymphocytes % 29.1 % (15.3-44.8); MCH 29.6 pg (27.0-35.0); MCHC 33.1 g/dL (32.0-36.0); MCV 89.3 fL (80-100); MPV 9.6 fL (7.6-11.3); Monocytes % 5.9 % (3.3-12.3); Platelets 207 thou/uL (152-406); RBC Red Blood Cell Count 5.04 M/uL (4.33-5.43); Red Cell Distribution Width 12.6 % (12.1-15.2)
[2023-11-13 17:35] LABS: Albumin 4.1 g/dL (3.4-5.0); Albumin/Globulin Ratio 1.2 (1.1-1.8); Anion Gap 7.6 mEq/L (5.0-15.0); Bilirubin Total 0.4 mg/dL (0.2-1.0); Globulin 3.4 g/dL (2.3-3.5); Potassium 3.6 mEq/L (3.5-5.1); Protein, Total 7.5 g/dL (6.4-8.2)
[2023-11-13] MEDS ORDERED: NA CHLORIDE 0.9% 1,000 ML ONE (18:01)
[2023-11-13] MEDS ORDERED: KETOROLAC 30 MG/ML INJ ONE (18:01)
--- NOTE | 2023-11-13 18:11 | RAD REPORT ---
EXAMINATION: CT ABDOMEN AND PELVIS WITH CONTRAST CLINICAL INDICATION: Male, 33 years old.ABD PAIN TECHNIQUE: CT abdomen and pelvis was performed, after the administration of IV contrast, [facility]. Axial, sagittal and coronal reconstructions were obtained. One or more of the following dose reduction techniques were used: Automated exposure control, adjustment of the mA and/o r kV according to patient size, and/or iterative reconstruction. Unless otherwise specified, incidental findings do not require dedicated imaging follow-up. [id number]. COMPARISON: No prior exam. FINDINGS: LOWER CHEST: The visualized lung bases are clear. LIVER: Normal in size and contour. No focal lesion. GALLBLADDER/BILE DUCT: No biliary ductal dilatation.? PANCREAS: No mass, ductal dilation, or balta-pancreatic fluid. SPLEEN: Normal size. No focal lesion. ADRENALS: Normal; no mass. KIDNEYS AND URETERS: Normal size and contour. No hydronephrosis. URINARY BLADDER: Normal contour. GASTROINTESTINAL TRACT: Stomach is non-dilated. Small bowel has normal course and caliber. No colonic wall thickening or pericolonic inflammatory changes. Normal appendix. PERITONEUM: No ascites. Tiny fat-containing umbilical hernia. LYMPH NODES: No lymphadenopathy. ABDOMINAL AORTA AND OTHER VESSELS: Normal caliber aorta and IVC. REPRODUCTIVE ORGANS: No pathologic process MUSCULOSKELETAL: No acute or suspicious osseous abnormality. ADDITIONAL FINDINGS: None. IMPRESSION: No acute or significant abnormalities seen in the abdomen or pelvis. Normal appendix. No urinary trac t calculi.
--- NOTE | 2023-11-13 18:38 | EDPHYS ---
Physician Documentation [facility] Name: Tom Thomas Age: 33 yrs Sex: Male : 1990 Arrival Date: 11/13/2023 Time: 15:55 Bed 16 Private MD: ED Physician Elbert Nugent HPI: 11/12 16:31 This 33 yrs old Male presents to ER via Ambulatory with complaints of Pelvic dr5 Pain. 16:31 Onset: The symptoms/episode began/occurred last week. Associated signs and symptoms: dr5 Pertinent positives: dysuria. Modifying factors: The patient symptoms are alleviated by remaining still, rest. Pt presents to the ER today for pelvic pain, bilateral back pain, dysuria. He reports last Wednesday he went to his PCP and all test results were normal. I inquired about penile discharge or concerns for STI - patient stated he has been with for 12 years and monogamous. Pt denies fever, hematuria, melena.. Historical: - Allergies: 16:08 Soy; iw - Home Meds: 16:08 None [Active]; iw - PMHx: 16:08 LVH; R BBB; iw - PSHx: 16:08 None; iw - Immunization history:: Adult Immunizations not up to date. - Infectious Disease History:: Denies. - Social history:: Smoking status: Patient reports the use of cigarette tobacco products, Patient uses street drugs, marijuana. ROS: 16:31 Constitutional: as per hpi dr5 Exam: 16:31 Constitutional: This is a well developed, well nourished patient who is awake, alert, dr5 and in no acute distress. Head/Face: Normocephalic, atraumatic. Eyes: Pupils equal round and reactive to light, extra-ocular motions intact. Lids and lashes normal. Conjunctiva and sclera are non-icteric and not injected. Cornea within normal limits. Periorbital areas with no swelling, redness, or edema. Neck: Trachea midline, no thyromegaly or masses palpated, and no cervical lymphadenopathy. Supple, full range of motion without nuchal rigidity, or vertebral point tenderness. No Meningismus. Chest/axilla: Normal chest wall appearance and motion. Nontender with no deformity. No lesions are appreciated. Cardiovascular: Regular rate and rhythm with a normal S1 and S2. Normal PMI, no JVD. No pulse deficits. Respiratory: Lungs have equal breath sounds bilaterally, clear to auscultation. No rales, rhonchi or wheezes noted. No increased work of breathing, no retractions or nasal flaring. Skin: Warm, dry with normal turgor. Normal color with no rashes, no lesions, and no evidence of cellulitis. MS/ Extremity: Pulses equal, no cyanosis. Neurovascular intact. Full, normal range of motion. Neuro: Awake and alert, GCS 15, oriented to person, place, time, and situation. Cranial nerves II-XII grossly intact. Motor strength 5/5 in all extremities. Sensory grossly intact. Cerebellar exam normal. Normal gait. 16:31 Abdomen/GI: Inspection: abdomen appears normal, Bowel sounds: normal, Palpation: abdomen is soft and non-tender, in the No tenderness to palpation over any quadrant. Pt has bilateral tenderness to palpation over pubic region below abdomen., 17:44 : Exam negative for acute changes, Male external genitalia: normal, no abrasion, no dr5 discharge, no erythema, no injury, no swelling, no tenderness, no evidence of ulceration, Circumcision noted. Gerda RN as rn staffing., Vital Signs: 16:06 BP 137 / 100; Pulse 65; Resp 16; Pulse Ox 100% on R/A; Weight 103.87 kg; Height 5 ft. 7 iw in. ; Pain 6/10; 16:17 BP 126 / 87; Pulse 75; Resp 18; Pulse Ox 99% on R/A; Pain 6/10; ar6 19:07 BP 122 / 82; Pulse 77; Resp 18; Pulse Ox 100% on R/A; ar6 16:06 Body Mass Index 35.87 (103.87 kg, 170.18 cm) iw 16:06 Pain Scale: Adult iw 16:17 Pain Scale: Adult ar6 MDM: 16:11 Patient medically screened. dr5 17:45 Differential diagnosis: UTI, Inguinal Hernia, Appendicitis, UTI. Data reviewed: vital dr5 signs, nurses notes. Consideration of Admission/Observation Escalation of care including admission/observation considered. Considered admission if CT showed appendicitis.. 17:47 Care significantly affected by the following chronic conditions: LVH, RBBB. Care dr5 significantly affected by the following Social Determinants of Health: Poor access to healthcare and/or lack of insurance. Counseling: I had a detailed discussion with the patient and/or guardian regarding the historical points, exam findings, and any diagnostic results supporting the discharge/admit diagnosis, lab results, to return to the emergency department if symptoms worsen or persist or if there are any questions or concerns that arise at home. Transition of care:. 17:54 Transition of care: After a detail discussion of the patient's case, care is dr5 transferred to Rigo GAYTAN. 18:35 Response to treatment: the patient's symptoms have mildly improved after treatment. cp Special discussion: Based on the patient's Hx, exam, and Dx evaluation, there is no indication for emergent surgery or inpatient Tx. It is understood by the patient/guardian that if the Sx's persist or worsen they need to return immediately for re-evaluation. 11/12 16:25 Order name: CBC with Diff; Complete Time: 17:28 dr5 11/12 18:18 Interpretation: Reviewed. 11/12 16:25 Order name: CMP; Complete Time: 17:39 dr5 11/12 18:16 Interpretation: Normal except: GLUC 115; AST 14. 11/12 16:25 Order name: Urinalysis w/ reflexes; Complete Time: 16:54 dr5 11/12 16:25 Order name: CT Abd/Pelvis - IV Contrast Only; Complete Time: 18:16 dr5 11/12 18:16 Interpretation: Report reviewed. 11/12 17:56 Order name: IV; Complete Time: 17:59 cp Administered Medications: 19:04 Discontinued: ns 0.9% 1000 ml IV at 1 bolus Per protocol ar6 18:08 Drug: Ketorolac IVP 15 mg IVP once Route: IVP; Site: right antecubital; ar6 19:04 Follow up: Response: No adverse reaction ar6 18:08 Drug: NS 0.9% IV 1000 ml IV at 1 bolus Per protocol Route: IV; Rate: 1 bolus; Site: ar6 right antecubital; 19:04 Follow up: Response: No adverse reaction; IV Status: Completed infusion; IV Intake: ar6 1000ml Disposition Summary: 11/13/23 18:37 Discharge Ordered Notes: Location: Home cp Problem: new cp Symptoms: have improved cp Condition: Stable cp Diagnosis - Lower abdominal pain, unspecified cp Followup: cp - With: Private Physician - When: 2 - 3 days - Reason: Worsening of condition Discharge Instructions: - Discharge Summary Sheet cp - Abdominal Pain, Adult cp Forms: - Medication Reconciliation Form cp - Antibiotic Education cp - Prescription Opioid Use cp - Patient Portal Instructions cp - Leadership Thank You Letter cp Prescriptions: - Ibuprofen 800 mg Oral Tablet - take 1 tablet ORAL route every 8 hours As needed take with food; 30 tablet; cp Refills: 0, Product Selection Permitted Addendum: 11/15/2023 19:58 Co-signature as Attending Physician, Elbert Nugent MD I reviewed the patient's care r t provided by the Advanced Practice Provider and agree with the diagnosis and treatment plan. Signatures: Dispatcher [employer] EDMS Marely Garza, RN RN iw Rigo Leon PA PA cp Elbert Nugent MD MD rt Nancy Silva RN RN ar6 Edy Dhillon, SWIMMING POOL SERVICE TECHNICIAN-C SWIMMING POOL SERVICE TECHNICIAN-Cdr5 Corrections: (The following items were deleted from the chart) 11/12 16:26 16:26 CBC+H.LAB.BRZ ordered. EDMS EDMS 16:26 16:26 COMPREHENSIVE METABOLIC PANEL+C.LAB.BRZ ordered. EDMS EDMS 16:26 16:26 Urinalysis+U.LAB.BRZ ordered. EDMS EDMS 17:47 16:31 Abdomen/GI: Inspection: abdomen appears normal, Bowel sounds: normal, Palpation: dr5 abdomen is soft and non-tender, in the Pt has tenderness to palpation in bilateral lower abdomen., dr5 11/13 00:11/12 18:20 Special discussion: Based on the patient's Hx, exam, and Dx evaluation, cp there is no indication for emergent surgery or inpatient Tx. It is understood by the patient/guardian that if the Sx's persist or worsen they need to return immediately for re-evaluation. cp 11/13 00:11/12 18:20 Response to treatment: the patient's symptoms have mildly improved after cp treatment, cp
--- NOTE | 2023-11-13 18:38 | ER ---
Nurse's Notes [facility] Name: Tom Thomas Age: 33 yrs Sex: Male : 1990 Arrival Date: 11/13/2023 Time: 15:55 Bed 16 Private MD: Diagnosis: Lower abdominal pain, unspecified Presentation: 11/12 16:06 Chief complaint: Patient states: went to the doctor for frequent urination on Wednesday iw and now my pelvic area is hurting and is swollen, is still having frequent urination. Coronavirus screen: At this time, the client does not indicate any symptoms associated with coronavirus-19. Ebola Screen: No symptoms or risks identified at this time. Initial Sepsis Screen: Does the patient meet any 2 criteria? No. Patient's initial sepsis screen is negative. Does the patient have a suspected source of infection? No. Patient's initial sepsis screen is negative. Risk Assessment: Do you want to hurt yourself or someone else? Patient reports no desire to harm self or others. Onset of symptoms was November 05, 2023. 16:06 Method Of Arrival: Ambulatory iw 16:06 Acuity: KILEY 3 iw Triage Assessment: 16:30 General: Appears in no apparent distress. ar6 Historical: - Allergies: 16:08 Soy; iw - Home Meds: 16:08 None [Active]; iw - PMHx: 16:08 LVH; R BBB; iw - PSHx: 16:08 None; iw - Immunization history:: Adult Immunizations not up to date. - Infectious Disease History:: Denies. - Social history:: Smoking status: Patient reports the use of cigarette tobacco products, Patient uses street drugs, marijuana. Screenin:17 [facility] ED Fall Risk Assessment (Adult) History of falling in the last 3 months, ar6 including since admission No falls in past 3 months (0 pts) Confusion or Disorientation No (0 pts) Intoxicated or Sedated No (0 pts) Impaired Gait No (0 pts) Mobility Assist Device Used No (0 pt) Altered Elimination No (0 pt) Score/Fall Risk Level 0 - 2 = Low Risk Oriented to surroundings, Maintained a safe environment, Educated pt \T\ family on fall prevention, incl call for assistance when getting out of bed, Hourly rounding (assess needs \T\ fall precautionary measures) done. Abuse screen: Denies threats or abuse. Denies injuries from another. Nutritional screening: No deficits noted. Tuberculosis screening: No symptoms or risk factors identified. Assessment: 16:17 General: Appears in no apparent distress. uncomfortable, Behavior is calm, cooperative, ar6 appropriate for age. Pain: Complains of pain in abdomen Pain currently is 6 out of 10 on a pain scale. Pain began x1 week. Neuro: Level of Consciousness is awake, alert, obeys commands, Oriented to person, place, time, situation. Cardiovascular: Capillary refill < 3 seconds. Respiratory: Airway is patent. GI: Abdomen is round non-distended, Reports nausea. : Urine is cloudy, Reports burning with urination, since x1 week urinary frequency, since x1 week. EENT: Oral mucosa is moist. Derm: Skin is intact, is healthy with good turgor, Skin is dry, Skin is pink, warm \T\ dry. Musculoskeletal: No signs and/or symptoms reported regarding the musculoskeletal system. Vital Signs: 16:06 BP 137 / 100; Pulse 65; Resp 16; Pulse Ox 100% on R/A; Weight 103.87 kg; Height 5 ft. 7 iw in. ; Pain 6/10; 16:17 BP 126 / 87; Pulse 75; Resp 18; Pulse Ox 99% on R/A; Pain 6/10; ar6 19:07 BP 122 / 82; Pulse 77; Resp 18; Pulse Ox 100% on R/A; ar6 16:06 Body Mass Index 35.87 (103.87 kg, 170.18 cm) iw 16:06 Pain Scale: Adult iw 16:17 Pain Scale: Adult ar6 ED Course: 15:59 Patient arrived in ED. mr 16:00 Edy Dhillon, LOW PRESSURE KETTLE OPERATOR-C is PHCP. dr5 16:00 Elbert Nugent MD is Attending Physician. dr5 16:08 Triage completed. iw 16:09 Arm band placed on. iw 16:10 Nancy Silva, RN is Primary Nurse. ar6 16:17 Patient has correct armband on for positive identification. Bed in low position. Call ar6 light in reach. Side rails up X 1. Provided Education on: plan of care. Pulse ox on. NIBP on. Door closed. Noise minimized. Lights dimmed. Moved to private room. Head of bed elevated. 16:17 No provider procedures requiring assistance completed. ar6 16:40 Urinalysis w/ reflexes Sent. ar6 16:55 Inserted saline lock: 20 gauge in right antecubital area, using aseptic technique. ar6 Blood collected. Flushed with 10 mL NS. 17:54 PHCP role handed off by Edy Dhillon FNP-C cp 17:54 Rigo Leon PA is PHCP. cp 17:57 CT Abd/Pelvis - IV Contrast Only In Process Unspecified. EDMS 19:09 IV discontinued, intact, bleeding controlled, No redness/swelling at site. Pressure ar6 dressing applied. Administered Medications: 19:04 Discontinued: ns 0.9% 1000 ml IV at 1 bolus Per protocol ar6 18:08 Drug: Ketorolac IVP 15 mg IVP once Route: IVP; Site: right antecubital; ar6 19:04 Follow up: Response: No adverse reaction ar6 18:08 Drug: NS 0.9% IV 1000 ml IV at 1 bolus Per protocol Route: IV; Rate: 1 bolus; Site: ar6 right antecubital; 19:04 Follow up: Response: No adverse reaction; IV Status: Completed infusion; IV Intake: ar6 1000ml Medication: 16:17 VIS not applicable for this client. ar6 Intake: 19:04 IV: 1000ml; Total: 1000ml. ar6 Outcome: 18:37 Discharge ordered by . cp 19:09 Discharged to home ambulatory, ar6 19:09 Condition: good 19:09 Discharge instructions given to patient, Instructed on discharge instructions, follow up and referral plans. medication usage, Demonstrated understanding of instructions, follow-up care, medications, Prescriptions given X 1, 19:10 Patient left the ED. ar6 Signatures: Dispatcher [employer] EDIA JuneLitzy, Reg Reg mr Marely Garza, RN Rigo Mcpherson PA PA cp Roberts, Amber, RN RN ar6 Edy Dhillon FNP-C LOW PRESSURE KETTLE OPERATOR-Cdr5
[2023-11-13 19:37] VITALS: BP 126/87; O2SAT 99
== END 2023-11-13 19:10 | disposition home or self-care (01) ==
LOC: ER 15:55
DX: R10.30 Lower abdominal pain, unspecified (principal); R30.0 Dysuria; Z72.0 Tobacco use
CPT/HCPCS: 96361; 85025; 81001; 36415; 80053; 74177; 96374; 99284; Q9967; J7030